=== PATIENT | male | born 1990 | race Caucasian/White ===

== ENCOUNTER → 2018-04-09 | Outpatient (CLI) | payer OTHER ==
[~2018-04-09] MED LIST: NO HOME MEDICATIONS
== END ==
LOC: COL.RAD 11:47
DX: K76.0 Fatty (change of) liver, not elsewhere classified (principal)

== ENCOUNTER → 2018-04-20 | Outpatient (CLI) | payer OTHER | LOC: COL.RAD 06:18 | DX: R10.11 Right upper quadrant pain (principal); R93.5 Abnormal findings on diagnostic imaging of other abdominal regions, including retroperitoneum | CPT/HCPCS: A9537 ==

== ENCOUNTER → 2018-10-08 | Outpatient (CLI) | payer OTHER | LOC: COL.RAD 09:00 | DX: N50.812 Left testicular pain (principal) ==